=== PATIENT | female | born 1965 | race Caucasian/White ===

== ENCOUNTER 2017-09-18 03:03 | Inpatient (IN) | payer OTHER ==
[~2017-09-18] VITALS: Ht 167.6 cm; Wt 101.6 kg
[2017-09-18] MEDS ORDERED: ALBUTEROL/IPRATROPIUM 3 ML NEB NEB ONE (03:15)
[2017-09-18] MEDS ORDERED: SODIUM CHLORIDE 0.9% 1000ML 1,000 ML IV ONE (03:15)
[2017-09-18 04:02] LABS: BASOPHILS % 0.8 % (0.0-1.0); EOSINOPHILS # (AUTO) 0.2 (0.0-0.4); EOSINOPHILS % 3.1 % (0.0-6.0); HEMATOCRIT 40.5 % (34.2-44.1); HEMOGLOBIN 13.6 g/dL (12.0-16.0); LYMPHOCYTES # (AUTO) 1.6 (1.0-3.2); LYMPHOCYTES % 30.7 % (18.0-39.1); MEAN CORPUSCULAR HEMOGLOBIN 30.6 pg (28-32); MEAN CORPUSCULAR HGB CONC 33.6 g/dL (31-35); MEAN CORPUSCULAR VOLUME 91.2 fL (81-99); MONOCYTES # (AUTO) 0.5 (0.2-0.8); MONOCYTES % 9.6 % (4.4-11.3); NEUTROPHILS # (AUTO) 2.8 (2.1-6.9); NEUTROPHILS % 55.4 % (38.7-80.0); PLATELET COUNT 207 x10e3/uL (140-360); RED BLOOD COUNT 4.44 x10e6/uL (3.6-5.1)
[2017-09-18 04:20] LABS: ALANINE AMINOTRANSFERASE 16 IU/L (0-55); ALBUMIN 3.7 g/dL (3.5-5.0); ALKALINE PHOSPHATASE 100 IU/L (40-150); ANION GAP 12.6 mmol/L (8-16); BLOOD UREA NITROGEN 13 mg/dL (7-26); BUN/CREATININE RATIO 15 (6-25); CALCIUM 9.4 mg/dL (8.4-10.2); CARBON DIOXIDE 23 mmol/L (22-29); CHLORIDE 100 mmol/L (98-107); CREATINE KINASE 64 IU/L (29-168); CREATININE, SERUM 0.87 mg/dL (0.57-1.11); EST GLOMERULAR FILTRATION RATE > 60 ML/MIN (60-); GLUCOSE 143 mg/dL (74-118); POTASSIUM 3.6 mmol/L (3.5-5.1); SODIUM 132 mmol/L (136-145)
--- NOTE | 2017-09-18 04:37 | Diagnostic Imaging Report ---
CHEST 2 VIEWS, Technique: CHEST 2 VIEWS Comparison: None Clinical history: Cough DISCUSSION: Heart/mediastinum: Normal. Lungs/pleural spaces: Suggestive of vague left midlung nodular opacity. No pleural effusion or pneumothorax. IMPRESSION: Vague left midlung opacity which could reflect early infection. Recommend 6-8 week follow-up. Signed by: Dr Soco Pena MD on 09/18/2017 4:33 AM
[2017-09-18] MEDS ORDERED: IOPAMIDOL 370 MG/ML 200 ML INFUS..BTL INJ ONE (04:59)
[2017-09-18] MEDS ORDERED: SODIUM CHLORIDE 0.9% 50ML 50 ML ONE (04:59)
[2017-09-18] MEDS ORDERED: ACETAMINOPHEN 325 MG TAB PO ONE (05:45)
[2017-09-18] MEDS ORDERED: SODIUM CHLORIDE 0.9% 1000ML 1,000 ML IV SCH (05:59)
[2017-09-18] MEDS ORDERED: ALBUTEROL SULF 0.083% NEB SOLN 3 ML NEB NEB SCH (06:00)
[2017-09-18] MEDS ORDERED: DEXTROSE 50% SYRINGE 50 ML IV PRN (06:00)
[2017-09-18] MEDS ORDERED: AZITHROMYCIN 500MG/SOD CHL 0.9% 250ML BAG IV SCH (06:00)
[2017-09-18] MEDS ORDERED: IPRATROPIUM BROMIDE 0.02% 2.5 ML NEB NEB SCH (06:00)
[2017-09-18] MEDS ORDERED: CEFTRIAXONE SOD 1 GM VIAL IV SCH (06:00)
--- NOTE | 2017-09-18 06:01 | Diagnostic Imaging Report ---
EXAM: CT CHEST W DATE: 09/18/2017 4:44 AM INDICATION: Cough, shortness of breath with positive D dimer COMPARISON: None TECHNIQUE: Multidetector CT scanning of the chest was performed. Coronal and sagittal multiplanar reformations were obtained. IV Contrast: 1 ml Isovue 370/300 FINDINGS: LUNGS AND PLEURA: Mild bilateral upper lobe patchy and nodular opacities. 5 mm right lower lobe nodule on image 81 and 3 mm nodule in the right upper lobe on image 47. No effusions or pneumothorax. HEART, MEDIASTINUM, VESSELS: Normal heart size, great vessel caliber. Suboptimal contrast bolus within the pulmonary arterial system partially degrades evaluation; however there is a tiny segmental/subsegmental filling defect in the left upper lobe on image 38. Addition possible filling defect in the left lower lobe on image 62, and right upper lobe though somewhat degraded from streak of contrast in the SVC. Mildly prominent mediastinal and hilar nodes, likely reactive. UPPER ABDOMEN: Cholecystectomy. MUSCULOSKELETAL: No acute findings. IMPRESSION: 1. At least one tiny segmental/subsegmental pulmonary embolism in the left upper lobe. 2. Mild infection/pneumonia in the upper lobes. Discussed with Physician: GIANLUCA MCGRAW MD at 5:58 AM on 09/18/2017. Signed by: Dr Soco Pena MD on 09/18/2017 5:58 AM
[2017-09-18] MEDS: ENOXAPARIN SODIUM INJ 100 MG/ML SYR SC SCH ×3 (06:20→20:57)
[2017-09-18] MEDS: AZITHROMYCIN 500MG/NS 250 ML 250 ML IV SCH (06:37)
[2017-09-18] MEDS: ALBUTEROL SULF 0.083% NEB SOLN 3 ML NEB NEB SCH ×4 (07:00→19:25)
[2017-09-18] MEDS: IPRATROPIUM BROMIDE 0.02% 2.5 ML NEB NEB SCH ×3 (07:00→19:25)
[2017-09-18] MEDS: INSULIN REGULAR, HUMAN 100 UNIT/1 ML 3ML VIAL SQ SCH ×4 (07:30→20:57)
[2017-09-18 08:40] VITALS: BP 118/61
[2017-09-18] MEDS ORDERED: AZITHROMYCIN 500MG/NS 250 ML 250 ML IV SCH (09:00)
[2017-09-18 12:00] VITALS: BP 146/82
[2017-09-18 13:20] LABS: CREATINE KINASE 65 IU/L (29-168)
--- NOTE | 2017-09-18 16:19 | Diagnostic Imaging Report ---
Ventilation/perfusion lung scan Clinical Information: Equivocal CT PE protocol study; elevated D-dimer. 52 F with SOB Comparison: CT chest PE protocol 09/18/2017; chest radiograph 09/18/2017 Discussion: Xenon-133 gas 10.6 mCi was administered via inhalation. Dynamic images of the lungs in the posterior projection were obtained through single breath, equilibrium, and washout phases. Distribution of tracer activity appears physiologic throughout the lungs. There are no segmental ventilatory defects. Washout of tracer is normal with no evidence of air trapping. Perfusion images of the lungs were obtained in multiple projections following intravenous administration of approximately 7.0 mCi of Tc-99m MAA. Distribution of tracer appears physiologic throughout the lungs. The contours of the lungs are well demarcated. There are no segmental perfusion defects of any size. The cardiomediastinal silhouette is unremarkable. Impression: Normal VQ scan. Scan findings represent a VERY LOW probability for acute pulmonary embolic disease based on the PIOPED II criteria. Signed by: Dr. Paty Chery M.D. on 09/18/2017 4:15 PM
--- NOTE | 2017-09-18 17:02 | Consultation ---
DATE OF CONSULTATION: September 18, 2017 REASON FOR CONSULTATION: Pneumonia and pulmonary embolism. HPI: Ms. Cotton is a 52-year-old female. She presented to the emergency room with 4 days of intractable cough and fever at home. She has low-grade fever here. She reports that the symptoms started 3 days ago with cough. A day before the symptoms started patient underwent colonoscopy and had a bowel prep. She reports that she has a gastroesophageal reflux disease which is so severe that every morning she has vomiting and regurgitation of gastric contents. She denies any chest pain, nausea, vomiting or diarrhea. She denies any long travels, any recent hospitalization, surgeries, any family history of cancer or personal history of cancer. She underwent a CT scan of the chest in the emergency room. I have reviewed the images and it is showing evidence of pneumonia in the upper lobes which may be consistent with her aspiration of gastric contents. There is a very small segmental embolism in the left upper lobe. REVIEW OF SYSTEMS: GENERAL: Fever and chills. HEENT: Denies any head trauma or head injury. Denies any earache, nosebleed, throat pain. CVS: Denies any chest pain. RESPIRATORY: As in HPI. GI: Regurgitation and gastroesophageal reflux. MUSCULOSKELETAL: Denies any arthralgias or myalgias. NEURO: Denies any focal weakness. HEMATOLOGY: Denies any bleeding or bruising. The rest of the review systems are negative except as in HPI. PAST MEDICAL HISTORY: History of type 2 diabetes mellitus. PAST SURGICAL HISTORY: Hysterectomy and cholecystectomy. 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 She is an ex-smoker, quit 9 years ago, smoked for 25 years around 10 cigarettes a day. She denies any alcohol use. PHYSICAL EXAMINATION: VITALS: Temperature 97.5, pulse of 100, blood pressure 146/82, respiratory rate of 18, O2 sat 97% on room air. T-max 100.2. SKIN: Warm and dry. GENERAL APPEARANCE: She is an middle-aged female who is in mild distress because of cough. HEENT: Head atraumatic, normocephalic. Pupils are reactive. NECK: Supple. CHEST: Clear to auscultation bilaterally. No crackles. HEART: S1 and S2 audible. ABDOMEN: Soft, nontender and nondistended. EXTREMITIES: Trace pedal edema. NEUROLOGIC: Awake and alert. LABORATORY DATA: White count of 5000, hemoglobin 13.6, platelets 207,000. Chemistry is within normal limits. CT of the chest, I reviewed the films showing upper lobe areas of possible consolidation. I am unable to visualize a small PE. However, it is reported in the left upper lobe. ASSESSMENT: Ms. Cotton if a 52-year-old female who presented with cough, fever and shortness of breath. She likely has aspiration pneumonitis. Patient has history of regurgitation and recently took GoLYTELY for bowel prep for colonoscopy. Incidental finding of pulmonary embolism which I am unsure after reviewing the images. However, it is reported in the left segmental area. Risk factor, hence unprovoked pulmonary embolism. PLAN: 1. IV Azithromycin and Rocephin, likely has aspiration pneumonitis. I will cover the patient for community-acquired pneumonia. 2. Lovenox subcutaneous has been started. Once ready for discharge, patient can be switched to Eliquis or Xarelto. She may have to take it for 6 months. I explained to the patient that is an unprovoked PE even though it is segmental and it is reported she may need to be on anticoagulation for 6 months. 3. Intractable cough likely due to be aspiration along with acid reflux. Will start the patient on Protonix. Continue the patient on nebulizer treatment. Thank you for this consult. Job#: [id number]
[2017-09-18 20:00] VITALS: BP 111/79
[2017-09-18 20:59] LABS: CREATINE KINASE 55 IU/L (29-168)
[2017-09-18 22:00] VITALS: BP 154/79
[2017-09-18] MEDS: GUAIFENESIN 600 MG TAB PO SCH (23:15)
[2017-09-18] MEDS: MONTELUKAST SODIUM 10 MG TAB PO SCH (23:15)
[2017-09-18] MEDS ORDERED: DIPHENHYDRAMINE HCL 25 MG CAP PO PRN (23:15)
[2017-09-18] MEDS: BENZONATATE 100 MG CAP PO PRN (23:35)
[2017-09-19] VITALS: BP 135/88
[2017-09-19] MEDS: ALBUTEROL SULF 0.083% NEB SOLN 3 ML NEB NEB SCH ×7 (00:02→23:27)
[2017-09-19] MEDS: IPRATROPIUM BROMIDE 0.02% 2.5 ML NEB NEB SCH ×4 (00:02→19:45)
[2017-09-19 04:00] VITALS: BP 123/86
--- NOTE | 2017-09-19 04:24 | History and Physical ---
CHIEF COMPLAINT: Pneumonia and pulmonary embolism. HISTORY: Patient is a 52-year-old female. For the past week, the patient has failed outpatient treatment for her upper respiratory infection. She has intractable cough and fever at home. Cough is productive. She came in with a low-grade temperature. The patient's symptoms started approximately 4 to 5 days ago, much worse. When she came to the emergency room, she was hypoxic associated with coughing. She is also having increasing shortness of breath. CT chest showed possible small pulmonary embolus. The patient has a small left segmental area, upper lobe area subsegmental pulmonary embolism. She also has pneumonia in the upper lobes bilaterally as well. Patient's V/Q scan was ordered. She does have a normal V/Q scan. Scan findings represented very low probability for acute pulmonary embolism, however, contradict the CT of the chest. The patient is otherwise stable at this time. Laboratory, WBC was 5.1, her sugar was 164. The patient is stable at this time. PAST SURGICAL HISTORY: Hysterectomy, cholecystectomy and gastric bypass surgery. PAST MEDICAL HISTORY: Diabetes type 2, hypertension. SOCIAL HISTORY: Patient does not smoke or use alcohol. No recreational drug use. ALLERGIES: TO CODEINE AND METFORMIN. HOME MEDICATIONS: List is reviewed. REVIEW OF SYSTEMS: As above. No shortness of breath. Productive cough. PHYSICAL EXAMINATION VITALS: Temperature was 100.2, blood pressure 143/72, pulse rate is 116, respirations 22. GENERAL: The patient is not in acute distress. HEENT: Normocephalic, atraumatic. Anicteric. NECK: Supple grossly. PULMONARY: Bilateral hoarseness and rhonchi with diminished breath sounds in bilateral upper lobe area. CARDIOVASCULAR: Tachycardia. ABDOMEN: Soft, obese. EXTREMITIES: No clubbing, cyanosis or edema. NEUROLOGIC: No gross focal deficit. LABORATORY: Influenza A and B is negative. Chemistry: Sodium is 132, potassium 3.6, chloride 100, bicarb 23, BUN is 13, creatinine 0.9, glucose 143. Cardiac enzymes negative. WBC is 5.1, hemoglobin 13.6, hematocrit 40.5 and platelet is 207,000. Coagulation: D-dimer is at 1040. IMPRESSION 1. Possible left subsegmental pulmonary embolism on the computed tomographic scan of the chest with contrast, pulmonary embolism protocol. 2. Bilateral upper lobe pneumonia, possible aspiration pneumonitis secondary to recurrent cough. 3. Low probability for pulmonary embolism on the ventilation/perfusion scan. 4. Upper respiratory infection with acute bronchitis. PLAN 1. Continue with antibiotics. 2. Lovenox for now. 3. Consultation with Dr. Maxx Vergara. 4. Antitussive. 5. PPI. 6. Nebulizer treatment. 7. Tessalon Perles p.r.n. for cough. 8. Tylenol as needed. 9. Insulin sliding scale coverage. 10. Claritin once a day. 11. Singulair once a day. We will check microbiology, blood culture was still pending. Job#: [id number] PATRICK
[2017-09-19] MEDS: AZITHROMYCIN 500MG/NS 250 ML 250 ML IV SCH (06:05)
[2017-09-19 06:33] LABS: BASOPHILS % 0.5 % (0.0-1.0); EOSINOPHILS # (AUTO) 0.2 (0.0-0.4); EOSINOPHILS % 3.8 % (0.0-6.0); HEMATOCRIT 35.8 % (34.2-44.1); HEMOGLOBIN 11.6 g/dL (12.0-16.0); LYMPHOCYTES # (AUTO) 2.2 (1.0-3.2); LYMPHOCYTES % 53.3 % (18.0-39.1); MEAN CORPUSCULAR HEMOGLOBIN 29.7 pg (28-32); MEAN CORPUSCULAR HGB CONC 32.4 g/dL (31-35); MEAN CORPUSCULAR VOLUME 91.8 fL (81-99); MONOCYTES # (AUTO) 0.4 (0.2-0.8); MONOCYTES % 8.9 % (4.4-11.3); NEUTROPHILS # (AUTO) 1.4 (2.1-6.9); NEUTROPHILS % 33.3 % (38.7-80.0); PLATELET COUNT 143 x10e3/uL (140-360); RED CELL DISTRIBUTION WIDTH 13.2 % (11.7-14.4)
[2017-09-19 06:54] LABS: ALANINE AMINOTRANSFERASE 11 IU/L (0-55); ALBUMIN 3.1 g/dL (3.5-5.0); ALBUMIN/GLOBULIN RATIO 0.9 (0.8-2.0); ALKALINE PHOSPHATASE 82 IU/L (40-150); ANION GAP 13.9 mmol/L (8-16); BLOOD UREA NITROGEN 9 mg/dL (7-26); BUN/CREATININE RATIO 11 (6-25); CALCIUM 8.8 mg/dL (8.4-10.2); CARBON DIOXIDE 25 mmol/L (22-29); CHLORIDE 108 mmol/L (98-107); CREATININE, SERUM 0.82 mg/dL (0.57-1.11); EST GLOMERULAR FILTRATION RATE > 60 ML/MIN (60-); GLUCOSE 124 mg/dL (74-118); POTASSIUM 3.9 mmol/L (3.5-5.1); SODIUM 143 mmol/L (136-145)
[2017-09-19] MEDS: INSULIN REGULAR, HUMAN 100 UNIT/1 ML 3ML VIAL SQ SCH ×4 (07:30→21:00)
[2017-09-19 07:37] LABS: CREATINE KINASE 51 IU/L (29-168)
[2017-09-19 07:49] VITALS: BP 106/63
[2017-09-19] MEDS: PANTOPRAZOLE SOD 40 MG TABEC PO SCH (08:42)
[2017-09-19] MEDS: ENOXAPARIN SODIUM INJ 100 MG/ML SYR SC SCH (08:43)
[2017-09-19] MEDS: LORATADINE 10 MG TAB PO SCH (08:43)
[2017-09-19] MEDS: BENZONATATE 100 MG CAP PO PRN ×2 (08:43→20:11)
[2017-09-19] MEDS: CEFTRIAXONE SOD 1 GM VIAL IV SCH ×2 (08:43→20:11)
[2017-09-19] MEDS: GUAIFENESIN 600 MG TAB PO SCH ×2 (08:43→17:26)
[2017-09-19 08:58] LABS: ANISOCYTOSIS SLIGHT; EOSINOPHILS % (MANUAL) 3 % (0-7); LYMPHOCYTES % (MANUAL) 53 % (19-48); MONOCYTES % (MANUAL) 8 % (3.4-9.0); NEUTROPHILS % (MANUAL) 30 % (40-74); PLATELET ESTIMATE SLIGHTLY DECREASED; PLATELET MORPHOLOGY COMMENT FEW LARGE; RBC MORPHOLOGY COMMENT NORMAL
[2017-09-19] MEDS: ACETAMINOPHEN 325 MG TAB PO PRN ×2 (09:15→20:19)
[2017-09-19 16:00] VITALS: BP 118/77
[2017-09-19 20:00] VITALS: BP 118/81
[2017-09-19] MEDS: MONTELUKAST SODIUM 10 MG TAB PO SCH (20:11)
[2017-09-19 20:50] VITALS: BP 118/81
[2017-09-20] VITALS (7 sets, daily range): BP systolic 113–138; BP diastolic 63–88
[2017-09-20] MEDS: ALPRAZOLAM 0.5 MG TAB PO PRN ×2 (00:12→22:17)
[2017-09-20] MEDS: IPRATROPIUM BROMIDE 0.02% 2.5 ML NEB NEB SCH ×4 (02:55→19:45)
[2017-09-20] MEDS: ALBUTEROL SULF 0.083% NEB SOLN 3 ML NEB NEB SCH ×5 (02:55→19:45)
[2017-09-20] MEDS: AZITHROMYCIN 500MG/NS 250 ML 250 ML IV SCH (05:31)
[2017-09-20] MEDS: INSULIN REGULAR, HUMAN 100 UNIT/1 ML 3ML VIAL SQ SCH ×4 (07:30→20:51)
[2017-09-20] MEDS: GUAIFENESIN 600 MG TAB PO SCH ×2 (08:10→16:58)
[2017-09-20] MEDS: PANTOPRAZOLE SOD 40 MG TABEC PO SCH (08:10)
[2017-09-20] MEDS: LORATADINE 10 MG TAB PO SCH (08:10)
[2017-09-20] MEDS: CEFTRIAXONE SOD 1 GM VIAL IV SCH ×2 (08:10→21:18)
[2017-09-20] MEDS: BENZONATATE 100 MG CAP PO PRN ×3 (09:50→21:19)
[2017-09-20] MEDS: ENOXAPARIN SOD INJ 40 MG/0.4 ML SYR SC SCH (16:59)
[2017-09-20] MEDS: BUDESONIDE 0.5MG/2 ML NEB INH SCH (19:45)
[2017-09-20] MEDS: MONTELUKAST SODIUM 10 MG TAB PO SCH (21:18)
[2017-09-21] VITALS (8 sets, daily range): BP systolic 104–115; BP diastolic 62–85
[2017-09-21] MEDS: ALBUTEROL SULF 0.083% NEB SOLN 3 ML NEB NEB SCH ×7 (00:15→23:15)
[2017-09-21] MEDS: IPRATROPIUM BROMIDE 0.02% 2.5 ML NEB NEB SCH ×5 (00:15→23:15)
[2017-09-21] MEDS: BENZONATATE 100 MG CAP PO PRN ×3 (01:45→21:02)
[2017-09-21] MEDS: AZITHROMYCIN 500MG/NS 250 ML 250 ML IV SCH (05:35)
[2017-09-21 06:45] LABS: BASOPHILS % 0.5 % (0.0-1.0); EOSINOPHILS # (AUTO) 0.2 (0.0-0.4); EOSINOPHILS % 2.7 % (0.0-6.0); HEMATOCRIT 36.7 % (34.2-44.1); LYMPHOCYTES # (AUTO) 1.9 (1.0-3.2); LYMPHOCYTES % 35.1 % (18.0-39.1); MEAN CORPUSCULAR HEMOGLOBIN 30.1 pg (28-32); MEAN CORPUSCULAR HGB CONC 32.7 g/dL (31-35); MONOCYTES # (AUTO) 0.4 (0.2-0.8); MONOCYTES % 6.7 % (4.4-11.3); NEUTROPHILS % 54.8 % (38.7-80.0); PLATELET COUNT 160 x10e3/uL (140-360); RED BLOOD COUNT 3.99 x10e6/uL (3.6-5.1); RED CELL DISTRIBUTION WIDTH 13.1 % (11.7-14.4)
[2017-09-21 07:10] LABS: ANION GAP 14.1 mmol/L (8-16); BLOOD UREA NITROGEN 12 mg/dL (7-26); BUN/CREATININE RATIO 14 (6-25); CALCIUM 9.2 mg/dL (8.4-10.2); CARBON DIOXIDE 23 mmol/L (22-29); CHLORIDE 106 mmol/L (98-107); CREATININE, SERUM 0.83 mg/dL (0.57-1.11); EST GLOMERULAR FILTRATION RATE > 60 ML/MIN (60-); GLUCOSE 170 mg/dL (74-118); POTASSIUM 4.1 mmol/L (3.5-5.1); SODIUM 139 mmol/L (136-145)
[2017-09-21] MEDS: BUDESONIDE 0.5MG/2 ML NEB INH SCH ×2 (07:29→19:00)
[2017-09-21] MEDS: INSULIN REGULAR, HUMAN 100 UNIT/1 ML 3ML VIAL SQ SCH ×4 (07:30→21:00)
[2017-09-21 07:37] LABS: EOSINOPHILS % (MANUAL) 3 % (0-7); LYMPHOCYTES % (MANUAL) 27 % (19-48); NEUTROPHILS % (MANUAL) 70 % (40-74); PLATELET ESTIMATE ADEQUATE; PLATELET MORPHOLOGY COMMENT NORMAL; RBC MORPHOLOGY COMMENT NORMAL
[2017-09-21] MEDS: PANTOPRAZOLE SOD 40 MG TABEC PO SCH (08:52)
[2017-09-21] MEDS: CEFTRIAXONE SOD 1 GM VIAL IV SCH ×2 (08:52→21:02)
[2017-09-21] MEDS: GUAIFENESIN 600 MG TAB PO SCH ×2 (08:52→17:18)
[2017-09-21] MEDS: LORATADINE 10 MG TAB PO SCH (08:52)
[2017-09-21] MEDS ORDERED: DEXILANT60 MG PO (11:53)
[2017-09-21] MEDS ORDERED: CETIRIZINE HCL10 MG PO (11:53)
[2017-09-21] MEDS ORDERED: ONDANSETRON HCL INJ 2 MG/ML VIAL IV PRN (12:15)
[2017-09-21] MEDS: ENOXAPARIN SOD INJ 40 MG/0.4 ML SYR SC SCH (17:18)
[2017-09-21] MEDS: MONTELUKAST SODIUM 10 MG TAB PO SCH (21:02)
[2017-09-22] VITALS: BP 118/68
[2017-09-22 02:50] VITALS: BP 118/68
[2017-09-22] MEDS: BENZONATATE 100 MG CAP PO PRN ×2 (03:00→08:36)
[2017-09-22] MEDS: ALBUTEROL SULF 0.083% NEB SOLN 3 ML NEB NEB SCH ×3 (03:00→11:00)
[2017-09-22] MEDS: ACETAMINOPHEN 325 MG TAB PO PRN (03:01)
[2017-09-22 04:00] VITALS: BP 128/78
[2017-09-22] MEDS: AZITHROMYCIN 500MG/NS 250 ML 250 ML IV SCH (06:14)
[2017-09-22] MEDS: IPRATROPIUM BROMIDE 0.02% 2.5 ML NEB NEB SCH ×2 (07:00→11:05)
[2017-09-22] MEDS: BUDESONIDE 0.5MG/2 ML NEB INH SCH (07:00)
[2017-09-22] MEDS: INSULIN REGULAR, HUMAN 100 UNIT/1 ML 3ML VIAL SQ SCH ×2 (07:30→11:30)
[2017-09-22 07:42] VITALS: BP 128/64
[2017-09-22] MEDS: GUAIFENESIN 600 MG TAB PO SCH (08:27)
[2017-09-22] MEDS: CEFTRIAXONE SOD 1 GM VIAL IV SCH (08:27)
[2017-09-22] MEDS: LORATADINE 10 MG TAB PO SCH (08:27)
[2017-09-22] MEDS: PANTOPRAZOLE SOD 40 MG TABEC PO SCH (08:27)
--- NOTE | 2017-09-22 09:15 | Discharge Summary ---
CONSULTANTS: Dr. Maxx Vergara FINAL DIAGNOSES 1. Atypical pneumonia. 2. Persistent cough and hypoxia, much improved now. 3. No pulmonary embolism. The computerized tomography scan showed a possible small embolism, but the venous Doppler the lower extremity was negative. V/Q scan is low probability. SUMMARY: Patient is a 52-year-old female came in with hypoxia and cough. CT scan showed possible small pulmonary embolism, but the venous Doppler of the lower extremities is negative. The V/Q scan is very low probability. With the patient's overall symptoms and no risk factor for pulmonary embolism, most likely not. The patient's anticoagulant therapy was stopped. The patient does have pneumonia. She was having cough and hypoxia. The patient is doing much better now. She is stable. She will go home today. Discharge medication are as follows: 1. Nebulizer DuoNeb q.6 h. p.r.n. 2. Claritin D 12 hours q. a.m. as needed. 3. Singulair 10 mg at bedtime. 4. Tessalon Perles 200 mg q.6 h. p.r.n. for cough. 5. Levaquin 500 mg daily for 3 days. 6. Phenergan 25 mg q.6 h. p.r.n. for nausea and vomiting. Patient is stable and discharged home. Follow up with family physician, Dr. April Stapleton in approximately 1 week. Job#: [id number] DC
[2017-09-22] MEDS ORDERED: CLARITIN-D 241 EACH PO (11:08)
[2017-09-22] MEDS ORDERED: SINGULAIR10 MG PO (11:09)
[2017-09-22] MEDS ORDERED: BENZONATATE200 MG PO (11:12)
[2017-09-22] MEDS ORDERED: LEVAQUIN500 MG PO (11:12)
[2017-09-22 11:23] VITALS: BP 99/73
== END 2017-09-22 13:30 | disposition home or self-care (01) | DRG 179 ==
LOC: ER 03:03 → ERHOLD 06:15 → MED/SURG3 08:09
PROVIDERS: ADMIT Internal Medicine; ATTEND Internal Medicine
DX: J69.0 Pneumonitis due to inhalation of food and vomit (principal); E11.9 Type 2 diabetes mellitus without complications; J20.9 Acute bronchitis, unspecified; R09.02 Hypoxemia; K21.9 Gastro-esophageal reflux disease without esophagitis; Z87.891 Personal history of nicotine dependence
CPT/HCPCS: 36415; 71046; 71260; 78582; 80048; 80053; 82550; 82553; 82948; 84484; 85025; 85379; 87040; 87071; 87205; 87400; 93005; 93970; 94640; 99284; A9540; A9558; J0456; J0696; J1650; J2405; J7030; Q9967